=== PATIENT | female | born 1970 | race Caucasian/White ===

== ENCOUNTER → 2016-09-27 | Outpatient (CLI) | payer BC ==
--- NOTE | 2016-09-27 15:26 | REPMRS ---
Patient History The patient states she had a clinical breast exam in 2016.Patient has history of cancer in the right breast at age 35. Family history of unknown cancer in father at age 70, breast cancer in sister at age 44, ovarian cancer in mother at age 63, and breast cancer in maternal grandmother at age 65. Digital Mammo Screening Bilat: September 27, 2016 - Exam #: [id number] Bilateral CC and MLO view(s) were taken. Technologist: Lina Pelaez, Technologist Prior study comparison: May 18, 2015, bilateral digital mammo screening bilat performed at [facility]. April 22, 2014, bilateral digital mammo screening bilat performed at [facility]. August 2012, bilateral digital mammo screening bilat, performed at [facility]. FINDINGS: The breast tissue is heterogeneously dense. This may lower the sensitivity of mammography. There is a moderate amount of heterogeneously dense fibroglandular tissue which is fairly symmetric. There is a linear calcification projecting posteriorly adjacent to the chest wall on the right MLO view unchanged from multiple prior studies. There is no interval development of dominant mass, architectural distortion, or clustered microcalcification typical of malignancy. There has been no change in the appearance of the mammogram from the prior studies. ASSESSMENT: BI-RADS/ACR category 1 mammogram. Negative. Recommendation Routine screening mammogram of both breasts in 1 year (for women over age 40). This mammogram was interpreted with the aid of an FDA-approved computer-aided dectection system. Electronically Signed By: Abdon Naik MD 09/27/16 [id number]
== END ==
LOC: M RAD 15:05
PROVIDERS: ATTEND Obstetrics & Gynecology
DX: Z12.31 Encounter for screening mammogram for malignant neoplasm of breast (principal)

== ENCOUNTER 2016-11-03 10:02 | Day surgery (SDC) | payer BC ==
[2016-11-03] VITALS (12 sets, daily range): BP systolic 73–112; BP diastolic 44–78
[~2016-11-03] VITALS: Ht 160 cm; Wt 61.2 kg
[~2016-11-03 10:02] MED LIST: VARE1TA PO
[2016-11-03] MEDS ORDERED: LR 1,000 ML IV SCH ×5 (10:15→19:30)
[2016-11-03 10:28] LABS: MEAN CORPUSCULAR HEMOGLOBIN 31.5 pg (27.0-33.0); MEAN CORPUSCULAR HGB CONC 33.4 g/dl (32.0-36.5); MEAN CORPUSCULAR VOLUME 94.1 fl (80.0-96.0); RED CELL DISTRIBUTION WIDTH 12.6 % (11.5-14.5); WHITE BLOOD COUNT 7.5 K/mm3 (4.0-10.0)
[2016-11-03] MEDS ORDERED: ceFAZolin 2 GM/D5W 50 ML IV BAG (J0690) As Ordered ONE (10:38)
[2016-11-03] MEDS ORDERED: ROCURONIUM BROMIDE 50 MG/5 ML VIAL As Ordered ONE ×2 (11:24→13:10)
[2016-11-03] MEDS ORDERED: PROPOFOL 200 MG/20 ML VIAL As Ordered ONE (11:24)
[2016-11-03] MEDS ORDERED: LIDOCAINE 2% INJ 100 MG/5 ML SDV (FOR ANES.) As Ordered ONE (11:24)
[2016-11-03] MEDS ORDERED: MIDAZOLAM INJ 2 MG/2 ML VIAL (J2250) As Ordered ONE (11:24)
[2016-11-03] MEDS ORDERED: fentaNYL 250 MCG/5 ML INJECTION (J3010) As Ordered ONE (11:24)
[2016-11-03] MEDS ORDERED: dexameTHASONE 4 MG/ML 1ML VIAL (J1100) As Ordered ONE (11:24)
[2016-11-03] MEDS ORDERED: HYDROmorphone HCL 2 MG/ML 1ML VIAL (J1170) As Ordered ONE (11:40)
[2016-11-03] MEDS ORDERED: ONDANSETRON 4MG/2ML VIAL (J2405) As Ordered ONE ×2 (11:59→14:08)
[2016-11-03] MEDS ORDERED: NEOSTIGMINE 1MG/ML 5 ML SYRINGE (J2710) As Ordered ONE (11:59)
[2016-11-03] MEDS ORDERED: ESMOLOL INJ 100MG/10ML VIAL As Ordered ONE (11:59)
[2016-11-03] MEDS ORDERED: GLYCOPYRROLATE INJ 0.2 MG/ML 2 ML VIAL As Ordered ONE (11:59)
[2016-11-03] MEDS ORDERED: KETOROLAC 60 MG/2 ML VIAL (J1885) As Ordered ONE (11:59)
[2016-11-03] MEDS ORDERED: LABETALOL HCL 100 MG/20 ML VIAL As Ordered ONE (12:10)
[2016-11-03] MEDS: fentaNYL 100 MCG/2 ML INJECTION (J3010) IV PRN ×4 (14:00→14:20)
[2016-11-03] MEDS ORDERED: fentaNYL 100 MCG/2 ML INJECTION (J3010) As Ordered ONE (14:00)
[2016-11-03] MEDS ORDERED: MORPHINE PCA 1MG/ML 100ML CADD As Ordered ONE (14:00)
[2016-11-03] MEDS ORDERED: PROMETHAZINE INJ 25 MG/ML VIAL (J2550) As Ordered ONE (14:19)
[2016-11-03] MEDS ORDERED: NALBUPHINE HCL 10 MG/ML AMP (J2300) IV PRN (15:00)
[2016-11-03] MEDS ORDERED: NALOXONE INJ 0.4 MG/1 ML VIAL (J2310) IV PRN (15:00)
[2016-11-03] MEDS ORDERED: EPIDURAL/PCA KEYS XX PRN (15:00)
[2016-11-03] MEDS ORDERED: MORPHINE PCA 1MG/ML 100ML CADD IV PRN (15:00)
[2016-11-03] MEDS ORDERED: diphenhydrAMINE INJ 50MG/ML VIAL (J1200) IV PRN (15:00)
[2016-11-03] MEDS ORDERED: IBUPROFEN 600 MG TAB PO PRN (15:15)
[2016-11-03] MEDS ORDERED: PROMETHAZINE INJ 25 MG/ML VIAL (J2550) IV PRN ×2 (15:15→16:15)
[2016-11-03] MEDS ORDERED: NORCO, ANEXSIA 5/325MG TABLET (HYDROcodone/ACETAMINOPHEN) PO PRN (15:15)
[2016-11-03] MEDS ORDERED: ONDANSETRON 4MG/2ML VIAL (J2405) IV PRN (15:15)
[2016-11-03] MEDS ORDERED: METOCLOPRAMIDE INJ 10MG/2ML VIAL (J2765) As Ordered ONE (16:05)
[2016-11-03] MEDS ORDERED: METOCLOPRAMIDE INJ 10MG/2ML VIAL (J2765) IV PRN (16:15)
[2016-11-03] MEDS ORDERED: ACETAMINOPHEN TAB 650MG DOSE (2X325MG) PO PRN (19:15)
[2016-11-04] VITALS: BP 113/59
[2016-11-04] MEDS ORDERED: LIDOCAINE 2% INJ 100 MG/5 ML SDV (FOR ANES.) As Ordered ONE (00:21)
[2016-11-04] MEDS ORDERED: fentaNYL 250 MCG/5 ML INJECTION (J3010) As Ordered ONE (00:21)
[2016-11-04] MEDS ORDERED: ONDANSETRON 4MG/2ML VIAL (J2405) As Ordered ONE (00:21)
[2016-11-04] MEDS ORDERED: MIDAZOLAM INJ 2 MG/2 ML VIAL (J2250) As Ordered ONE ×2 (00:21→00:54)
[2016-11-04] MEDS ORDERED: PROPOFOL 200 MG/20 ML VIAL As Ordered ONE (00:21)
[2016-11-04] MEDS ORDERED: ROCURONIUM BROMIDE 50 MG/5 ML VIAL As Ordered ONE (00:21)
[2016-11-04] MEDS ORDERED: METOCLOPRAMIDE INJ 10MG/2ML VIAL (J2765) As Ordered ONE (01:44)
[2016-11-04] MEDS ORDERED: NEOSTIGMINE 1MG/ML 5 ML SYRINGE (J2710) As Ordered ONE (01:47)
[2016-11-04] MEDS ORDERED: GLYCOPYRROLATE INJ 0.2 MG/ML 2 ML VIAL As Ordered ONE (01:47)
[2016-11-04] MEDS ORDERED: LR 1,000 ML IV SCH ×2 (02:30→02:45)
[2016-11-04] MEDS ORDERED: ONDANSETRON 4MG/2ML VIAL (J2405) IV PRN (02:30)
[2016-11-04] MEDS ORDERED: METOCLOPRAMIDE INJ 10MG/2ML VIAL (J2765) IV PRN (02:30)
[2016-11-04] MEDS ORDERED: fentaNYL 100 MCG/2 ML INJECTION (J3010) IV PRN (02:30)
[2016-11-04 03:22] VITALS: BP 127/81
[2016-11-04 04:00] VITALS: BP 123/80
[2016-11-04 05:00] VITALS: BP_SYST 123; BP_DIAS 74; BP_DIAS 80
[2016-11-04 06:00] VITALS: BP_SYST 121; BP_SYST 123; BP_DIAS 67; BP_DIAS 74
[2016-11-04] MEDS ORDERED: NORCO, ANEXSIA 5/325MG TABLET (HYDROcodone/ACETAMINOPHEN) PO PRN (06:00)
[2016-11-04 07:00] VITALS: BP 120/82
[2016-11-04 07:00] LABS: MEAN CORPUSCULAR HEMOGLOBIN 31.3 pg (27.0-33.0); MEAN CORPUSCULAR HGB CONC 34.1 g/dl (32.0-36.5); MEAN CORPUSCULAR VOLUME 91.8 fl (80.0-96.0); RED CELL DISTRIBUTION WIDTH 14.1 % (11.5-14.5); WHITE BLOOD COUNT 12.1 K/mm3 (4.0-10.0)
[2016-11-04] MEDS ORDERED: NORCO, ANEXSIA 5/325MG TABLET (HYDROcodone/ACETAMINOPHEN) As Ordered ONE (09:07)
--- NOTE | 2016-11-04 10:37 | RO ---
DATE OF PROCEDURE: 11/03/2016 PREOPERATIVE DIAGNOSIS: Menometrorrhagia, dysmenorrhea, fibroids by films, and personal history of breast cancer. POSTOPERATIVE DIAGNOSIS: Menometrorrhagia, dysmenorrhea, fibroids by films, and personal history of breast cancer. PROCEDURE: Laparoscopic assisted vaginal hysterectomy with bilateral salpingo-oophorectomy. SURGEON: Dr. Mariya Steven STRINGER UP SOLDERING MACHINE: Yuly Deleon ANESTHESIA: General endotracheal anesthesia. BRIEF DESCRIPTION OF PROCEDURE AND FINDINGS: Mkaayla was brought to the operating room where sufficient general endotracheal anesthesia was induced and she was prepped, draped and positioned in the usual sterile fashion with an uterine manipulator placed in the retroverted uterus. The Jimenes with the ability to backfill placed. Attention was then turned to the abdomen where a transverse incision was made over a previous laparoscopic looking scar, even though patient not having been reported laparoscopy to me. Sharp and blunt dissection were continued through the subcutaneous tissues to the level of the rectus fascia where a transverse incision was made in the rectus fascia and #0 Vicryl retention sutures were placed. Given the scar that was visible once the patient was anesthetized and it was done in the belly button, we took care to dissect through the peritoneum under direct visualization, lest we run into any other adhesions, although there did not appear to be any significant difficulty in that regard. The Jimenez cannula was placed into the peritoneal cavity under direct visualization in open laparoscopic technique and the #0 Vicryl retention sutures were used to secure the Jimenez. CO2 insufflation was then begun. After adequate insufflation, the peritoneal cavity was visualized. There were normal shiny peritoneal surfaces throughout. There were no excrescences, ascites, nor exudate. Some very minor pelvic adhesions. The right tube did not really have any appearance that looked like tubal ligation, so I am not 100% sure what the previous surgery was. The left tube did have some evidence of scarring and looked like a tubal ligation, so there may have been scarring on the right side that just was not all that visible. Nonetheless, the ovaries themselves were reassuring in appearance, free swinging, and we were able with the manipulator through the operative port at the umbilical site to place the 45 mm Enseal and use that to cauterize and transect and dissect through the infundibulopelvic ligaments, carefully staying away from the ureters and the bowel. Then work our way through the mesentery of the ovary to the mesentery of the tube as well and work our way through the broad to the round ligament which was fully transected from above. Then of course did this dissection on both sides, first the left and then the right. After the ovaries were clearly free swinging and the round ligaments freed from above, attention was turned to the vaginal approach. The uterine manipulator was removed and the anterior and posterior aspect of the cervix grasped with single tooth tenacula. Circumferential incision was made around the base of the cervix. The cardinal ligaments were isolated bilaterally, clamped with the Barbara'Oconnor clamps which were used throughout this portion of the case, transected, and then ligated using #0 Vicryl, which was also used throughout this portion of the case. The posterior reflection of the peritoneum was then entered and the uterosacral ligaments were clamped, transected, ligated and secured for later reattachment to the cuff. Then dissected through the anterior tissues and the bladder flap was created and the uterine vasculature was carefully clamped, transected, and ligated in sequential fashion along the lateral aspect of the uterus. The uterus with the attached ovaries and tubes was subsequently delivered vaginally and the pedicles carefully evaluated. There definitely was some oozing on the patient's right side. We had to over sew that pedicle a couple of times, but we paused, waited, and we had the pressure down of course because we were working vaginally, and we used a sponge on a stick to dry the area and hold the bowel away, especially since the patient was in some Trendelenburg, and so we were able to see the pedicles and visualize that we had good control. The angle stitches of #0 Vicryl were placed. A whipstitch was placed also around the vaginal cuff because she had some ascending vaginal arteries that were a little more vascular than some, very likely related to the fact that she is only 45 years old. After the whipstitch of the vaginal cuff, we were able to still reevaluate the pedicles and confirm we had good hemostasis. Angle stitches of #0 Vicryl were taken and of course the uterosacrals were reincorporated and the cuff was closed with #0 Vicryl suture in a running locked stitch. A dry result was attained. With good hemostasis confirmed, attention was turned to the abdomen. The fascia wound at the umbilical site was closed with the #0 Vicryl retention sutures and the skin was closed with #3-0 Vicryl in a subcuticular stitch. A dry sterile dressing then applied. Estimated blood loss for the procedure was 100 mL. Fluid replacement was crystalloid. Complications: None. Condition and Disposition: Makayla tolerated the procedure well and was recovering in the recovery room in good condition.
[2016-11-04] MEDS ORDERED: NORC5TAB PO (12:04)
[2016-11-04] MEDS ORDERED: IBUP600T26 PO (12:06)
--- NOTE | 2016-11-04 21:15 | RO ---
DATE OF PROCEDURE: 11/03/2016 PREOPERATIVE DIAGNOSIS: Postoperative bleed with hypotension and dyspnea. POSTOPERATIVE DIAGNOSIS: Postoperative bleed with hypotension and dyspnea. Approximately 1500 mL of clots were removed from the pelvis. She did not have any areas of continued active bleeding. PROCEDURE: Laparoscopy with evacuation of blood and clot and we did cauterize the pedicles because we had a good view of them but they were not actually bleeding. SURGEON: Dr. Mariya Steven DETECTIVE CHIEF: ANESTHESIA: General endotracheal anesthesia. DESCRIPTION OF PROCEDURE: Makayla was brought to the operating room and prepped, draped and positioned in the usual sterile fashion with the Jimenes that was already in place just left in place. She did have a vaginal prep, but we did not place any type of sponge on a stick or vaginal manipulator. At this point, we turned our attention to the umbilical wound and reopened it and placed the Tone cannula under direct visualization and insufflated the belly with CO2. After adequate insufflation, the peritoneal cavity was visualized and there was copious clot and blood. There was no bright red blood. There was no initially visible source of bleeding. A 5 mm right lower quadrant port was placed so we could evacuate that and get a better evaluation. Irrigation, suction was used to irrigate, break up the clot, suck it out and, as already noted above, in the end, approximately 1500 mL of blood/clot was removed along, of course, with the irrigation. With Trendelenburg and visualization of the pelvis, we were able to see the pedicles, and although it was clear the patient had a bleed, there was certainly no question about that, and, of course, she had bled intraoperatively, not vaginally, so there was no evidence that there was external cuff bleeding causing intraabdominal blood. All of the pedicles and the cuff were carefully visualized. There was no active bleeding. Suspicion was a little bit higher on the right side just because it looked a little juicy. We let the pressure down and watched and irrigated it and suctioned it, and even with suctioning and irrigating copiously, we did not actually see any bleeding here. But because it just looked suspicious, we did re-cauterize those pedicles and then we made sure we cleared as much of that clot as we could and let the pressure down again and watched for an extended period of time to make sure that there was nothing oozing, and that included at the cuff and any to the pedicles. We then removed the patient from Trendelenburg and, again, continued evacuating as much of that blood as we could to try to minimize the risk that that would serve as a nidus for infection, and then the procedure was ended. CO2 was allowed to escape the abdomen. Trocars were removed. The fascial wound at the umbilicus was once again closed with #0 Vicryl retention sutures and the skin was closed with #3-0 Vicryl at both sites. Dry sterile dressings were then applied. Again, estimated blood loss in the range of 1500 mL but a lot of that had been lost prior to going to the operating room (OR), as already documented. Complications: None. Condition and Disposition: Makayla did tolerate the procedure well and was recovering in the recovery room in good condition.
[2016-11-05] MEDS ORDERED: NORCO, ANEXSIA 5/325MG TABLET (HYDROcodone/ACETAMINOPHEN) PO PRN (06:00)
== END 2016-11-04 12:31 | disposition home or self-care (01) ==
LOC: M SDC 10:02 → M MS5PR 15:30 → M SDC 11-04 12:31
PROVIDERS: ATTEND Obstetrics & Gynecology
DX: N88.8 Other specified noninflammatory disorders of cervix uteri (principal); N80.0 Endometriosis of uterus; N94.6 Dysmenorrhea, unspecified; N92.1 Excessive and frequent menstruation with irregular cycle; D25.9 Leiomyoma of uterus, unspecified; Z85.3 Personal history of malignant neoplasm of breast; N99.820 Postprocedural hemorrhage of a genitourinary system organ or structure following a genitourinary system procedure; I95.81 Postprocedural hypotension; R06.00 Dyspnea, unspecified; Z88.0 Allergy status to penicillin; F17.210 Nicotine dependence, cigarettes, uncomplicated; Z92.3 Personal history of irradiation
CPT/HCPCS: 36415; 36430; 49322; 58552; 85014; 85018; 85027; 86850; 86900; 86901; 86920; 88309; J0690; J1100; J1170; J1885; J2250; J2405; J2710; J2765; J3010; P9016

== ENCOUNTER → 2016-11-23 | Outpatient (REF) | payer BC ==
[~2016-11-23] MED LIST changes: +IBUP600T26 PO; +NORC1TAB4 PO
== END ==
LOC: M LAB REF 12:24
PROVIDERS: ATTEND Obstetrics & Gynecology
DX: R39.89 Other symptoms and signs involving the genitourinary system (principal)

== ENCOUNTER → 2016-12-08 | Outpatient (REF) | payer BC | LOC: M LAB REF 14:02 | PROVIDERS: ATTEND Physician Assistant | DX: R30.0 Dysuria (principal) ==

== ENCOUNTER → 2017-04-27 | Outpatient (REF) | payer BC ==
[~2017-04-27] MED LIST changes: +IBUP-1022 PO; -IBUP600T26 PO
[2017-04-30 00:06] LABS: Lyme Disease IgG/IgM Antibodie <0.91 ISR (0.00-0.90); Lyme Disease IgM Ab Quantitati <0.80 index (0.00-0.79)
== END ==
LOC: M LAB REF 14:55
PROVIDERS: ATTEND Nurse Practitioner Adult Health
DX: M13.0 Polyarthritis, unspecified (principal)

== ENCOUNTER → 2017-05-19 | Outpatient (CLI) | payer BC ==
--- NOTE | 2017-05-19 16:07 | REP ---
DIAGNOSTIC MAMMOGRAM RIGHT BREAST WITH RIGHT BREAST ULTRASOUND: Diagnostic mammogram right breast performed with multiple spot compression views obtained. Reportedly there is a palpable abnormality in the region of the right axillary tail, which is marked on the skin with a triangular marker. Comparison made with multiple prior exams, most recently 09/27/2016. Moderate fibroglandular tissue is unchanged with no new mass or architectural distortion. No clustered microcalcifications are seen. Real-time sonographic evaluation of the right breast was performed in the region of 10-o'clock at the site of the reported palpable abnormality. No cystic or solid nodule is seen at that location. Incidental note is made of dilated ducts in the 9-o'clock region of the right breast near the nipple. In this 9-o'clock region, there is also an oval hypoechoic nodule which demonstrates internal blood flow measuring 7 x 4 x 11 mm. There is low resistance flow with duplex Doppler evaluation. I would recommend ultrasound guided biopsy of the hypoechoic nodule at 9-o'clock. IMPRESSION: ACR 4 suspicious. No mammographic or sonographic abnormality is seen at the site of the reported palpable abnormality. However, at 9-o'clock position is an oval hypoechoic nodule demonstrating internal blood flow measuring 7 x 4 x 11 mm. Recommend ultrasound guided biopsy. BI-RADS/ACR category 4 mammogram. Suspicious abnormality - biopsy should be considered. Usually requires biopsy. This mammogram was interpreted with the aid of an FDA-approved computer-aided detection system. The patient states she/he had a clinical breast exam in April 2017. The patient letter being requested is M4. Signed by Dinesh Haro MD 05/19/2017 07:23 P
== END ==
LOC: M RAD 14:26
PROVIDERS: ATTEND Nurse Practitioner Adult Health
DX: N63 Unspecified lump in breast (principal); Z85.3 Personal history of malignant neoplasm of breast
CPT/HCPCS: 76642; G0206

== ENCOUNTER → 2017-10-10 | Outpatient (CLI) | payer BC | LOC: M WHC 07:57 | DX: N95.1 Menopausal and female climacteric states (principal); C50.919 Malignant neoplasm of unspecified site of unspecified female breast (principal) | CPT/HCPCS: 77080 ==

== ENCOUNTER → 2018-12-07 | Outpatient (CLI) | payer MEDICAID ==
[~2018-12-07] MED LIST changes: +GASTROGRAFIN SOLUTION 30ML (Q9963) As Ordered ONE; +ISOVUE-370 76% 100ML VIAL (Q9967) As Ordered ONE; +LEFL1TAB4 PO; +LETR2.5T2 PO; -NORC1TAB4 PO; +NORC1TAB7 PO; +PRED10TA2 PO; +VENL150C43 PO
--- NOTE | 2018-12-07 15:59 | REP ---
CT of the chest with IV contrast: There are no comparison chest CT studies. Studies performed for right breast DCIS. There is a noncalcified the right middle lobe 11 mm spiculated lung nodule on image 73. There are no other lung nodules or masses. There are no infiltrates or effusions. There are bilateral breast implants. There is pectus excavatum. The thoracic aorta is unremarkable. Cardiac size is normal. There is no pericardial effusion. There are no lytic, blastic or destructive skeletal changes. Impression: 11 mm spiculated right middle lobe lung nodule. I would recommend follow-up radionuclide PET scan for further evaluation. Pectus excavatum. Electronically Signed by Dinesh Coburn MD 12/07/2018 03:50 P
--- NOTE | 2018-12-07 16:07 | REP ---
CT of the abdomen and pelvis with IV and oral contrast: There is a spiculated 11 ml lung nodule in the right middle lobe, for which follow-up PET scan is recommended. Please refer to the chest CT for further information. The hepatic parenchyma demonstrates a 7 ml hypodense lesion posteriorly in the right lobe of the liver, too small to further characterize that this time. The hepatic parenchyma is otherwise homogeneous and unremarkable. The gallbladder, pancreas, spleen, adrenals, and kidneys are unremarkable except for a tiny 2 mm nonobstructive left renal calculus. The abdominal aorta is unremarkable. There is no retroperitoneal adenopathy or mass. There is no mesenteric adenopathy, mass or ascites. There is no bowel distension or obstruction. There is nonspecific wall thickening of the sigmoid colon. This could represent colitis in the appropriate clinical setting. Pelvis: There is a hysterectomy. Vaginal cuff and adnexa are unremarkable. There is no ascites or adenopathy. The bladder is unremarkable. Wall thickening of the sigmoid colon compatible with colitis in the appropriate clinical setting. There are no lytic, blastic or destructive skeletal changes. Impression: There are findings compatible with sigmoid colon colitis in the appropriate clinical setting. Otherwise, no evidence of adenopathy, mass or metastatic disease. Electronically Signed by Dinesh Coburn MD 12/07/2018 03:58 P
== END ==
LOC: M RAD 13:25
PROVIDERS: ATTEND Nurse Practitioner Family
DX: C50.911 Malignant neoplasm of unspecified site of right female breast (principal); R91.1 Solitary pulmonary nodule
CPT/HCPCS: 71260; 74177; Q9963; Q9967

== ENCOUNTER → 2019-07-01 | Outpatient (CLI) | payer BC ==
[~2019-07-01] MED LIST changes: +CLON0.3D8 TOP; -GASTROGRAFIN SOLUTION 30ML (Q9963) As Ordered ONE
--- NOTE | 2019-07-02 05:09 | REP ---
Clinical: Follow-up pulmonary nodule. Technique: Axial contrast enhanced images from the thoracic inlet to the upper abdomen with coronal and sagittal re-formations using 100 ml Isovue 370 intravenous contrast material. Comparison: Chest CT 12/07/2018. PET-CT 01/15/2019. Findings: The 11 mm spiculated lung nodule in the right middle lobe remains stable and appeared non-hypermetabolic on recent PET CT. Small area of nodular scarring medial to the nodule also remains stable and non-hypermetabolic. A smaller 3 mm nodule in the right lower lobe remains unchanged and again non-hypermetabolic. Lung [place] are otherwise well aerated and without further acute consolidation, nodule or mass lesion. No effusion. No pneumothorax. Tracheobronchial tree is patent. No adenopathy. The mediastinum demonstrates normal thoracic aorta, pulmonary vasculature, and heart/pericardium. Surrounding musculoskeletal structures are intact and without focal abnormality. Bilateral mammoplasty. Impression: 1. Lung nodules remains stable and are noted to be non-hypermetabolic on recent PET CT. Consider 9-12 month follow-up to confirm stability. 2. No new acute mediastinal or pleuroparenchymal process. Electronically Signed by Tony Cristobal MD 07/02/2019 05:00 A
== END ==
LOC: M RAD 11:07
PROVIDERS: ATTEND Nurse Practitioner Family
DX: R91.8 Other nonspecific abnormal finding of lung field (principal); C50.911 Malignant neoplasm of unspecified site of right female breast; Z87.891 Personal history of nicotine dependence

== ENCOUNTER → 2019-10-11 | Outpatient (CLI) | payer BC, OTHER ==
[~2019-10-11] MED LIST changes: -ISOVUE-370 76% 100ML VIAL (Q9967) As Ordered ONE
--- NOTE | 2019-10-15 13:22 | DEXA ---
AP SPINE L1 - L4 1.042 -1.2 -1.1 LT FEMUR TOTAL 0.871 -1.1 -0.7 LT NECK 0.864 -1.3 -0.6 RT FEMUR TOTAL 0.901 -0.8 -0.5 RT NECK 0.872 -1.2 -1.5 TOTAL BODY TOTAL OTHER COMMENTS: There is low bone density of the spine and hips. The density of the spine is increased 4.3% since 10/10/2017. The density of the left hip has increased 1.5% since 10/10/2017. The density of the right hip has increased 4.6% since 10/10/2017. FOLLOW-UP: Recommendation for the next bone density exam: 2 years. KAEL
== END ==
LOC: M WHC 12:52
PROVIDERS: ATTEND Internal Medicine Medical Oncology
DX: M81.0 Age-related osteoporosis without current pathological fracture (principal); C34.90 Malignant neoplasm of unspecified part of unspecified bronchus or lung

== ENCOUNTER → 2020-07-20 | Outpatient (CLI) | payer BC ==
[~2020-07-20] MED LIST changes: +ISOVUE-370 76% 100ML VIAL As Ordered ONE; +PROZ10CA7 PO
--- NOTE | 2020-07-20 10:00 | REP ---
INDICATION: LUNG NODULES COMPARISON: 07/01/2019 TECHNIQUE: Axial contrast enhanced images from the thoracic inlet to the upper abdomen with coronal and sagittal reformations using 75 ml Isovue 370 intravenous contrast material[address] examination was performed using the following dose reduction techniques: Automated exposure control, adjustment of mA and/or kv according to the patient's size, and use of iterative reconstruction technique. FINDINGS: The 11 mm rounded lesion in the right middle lobe along with medial right middle lobe scarring and 3 mm noncalcified nodule in the deep lateral right sulcus (image 82) remains stable. A 3 mm subpleural nodule in the apical right lower lobe (image 41) and subpleural 2-3 mm densities in the posterior left lower lobe also identified and in retrospect remain stable as well. No acute consolidation, significant nodule or mass lesion. No pleural effusion. No pneumothorax. Mediastinum demonstrates normal stable appearance to the thoracic aorta, pulmonary vasculature, and heart/pericardium. Thyroid gland demonstrates stable low-density cystic/nodular changes. Evidence for prior bilateral mastectomy/mammoplasty. Musculoskeletal structures without acute osseous abnormality. Limited upper abdomen demonstrates normal bilateral adrenal glands and stable subcentimeter right hepatic cyst. IMPRESSION: 1. Stable pulmonary lesions unchanged compared through 12/07/2018 and non metabolic on PET-CT dated 01/15/2019 likely representing chronic stable changes. 2. No acute mediastinal or pleuroparenchymal process appreciated. 3. Cystic/nodular changes to the thyroid gland. <Electronically signed by Tony Cristobal > 07/20/20 0930
== END ==
LOC: M RAD 08:34
PROVIDERS: ATTEND Internal Medicine Hematology & Oncology
DX: R91.1 Solitary pulmonary nodule (principal); Z85.3 Personal history of malignant neoplasm of breast; Z90.13 Acquired absence of bilateral breasts and nipples
CPT/HCPCS: 71260; Q9967

== ENCOUNTER → 2020-08-27 | Outpatient (REF) | payer BC ==
[~2020-08-27] MED LIST changes: -ISOVUE-370 76% 100ML VIAL As Ordered ONE
[2020-08-27 12:55] LABS: H PYLORI QUALITATIVE IgG NEGATIVE (NEGATIVE)
== END ==
LOC: M LAB REF 12:14
PROVIDERS: ATTEND Nurse Practitioner Adult Health
DX: R11.0 Nausea (principal); Z51.81 Encounter for therapeutic drug level monitoring

== ENCOUNTER → 2021-09-29 | Outpatient (REF) | payer BC | LOC: M LAB REF 11:45 | PROVIDERS: ATTEND Nurse Practitioner Adult Health | DX: Z02.1 Encounter for pre-employment examination (principal) ==

== ENCOUNTER → 2021-10-08 | Outpatient (CLI) | payer BC | LOC: M PLAIMG 10:21 | PROVIDERS: ATTEND Nurse Practitioner Adult Health | DX: N20.0 Calculus of kidney (principal); R91.1 Solitary pulmonary nodule; K76.89 Other specified diseases of liver ==

== ENCOUNTER → 2023-02-06 | Day surgery (SDC) | payer BC ==
[~2023-02-06] VITALS: Ht 160 cm; Wt 60.6 kg
[~2023-02-06] MED LIST changes: +HYDR200T46 PO; +LIDOCAINE 2% 100MG/5ML SDV (FOR ANES.) As Ordered ONE; +NS 1,000 ML IV ONE; +SULF500T2 PO; +fentaNYL 100 MCG/2 ML INJECTION As Ordered ONE; +propofoL 200 MG/20 ML VIAL As Ordered ONE
[2023-02-06 15:00] VITALS: BP 120/87; TEMP 96.6; O2SAT 96
== END | disposition home or self-care (01) ==
LOC: M OPP 10:56
PROVIDERS: ATTEND Internal Medicine Gastroenterology
DX: D49.0 Neoplasm of unspecified behavior of digestive system (principal); D12.2 Benign neoplasm of ascending colon; D12.4 Benign neoplasm of descending colon; K57.30 Diverticulosis of large intestine without perforation or abscess without bleeding; K64.8 Other hemorrhoids; Z15.09 Genetic susceptibility to other malignant neoplasm; K44.9 Diaphragmatic hernia without obstruction or gangrene; K29.70 Gastritis, unspecified, without bleeding; R12 Heartburn
CPT/HCPCS: 43239; 45385; 88305; J3010

== ENCOUNTER → 2023-03-07 | Outpatient (CLI) | payer BC ==
[~2023-03-07] MED LIST changes: +GASTROGRAFIN SOLUTION 30ML As Ordered ONE; +ISOVUE-300 61% 100ML VIAL As Ordered ONE; -LIDOCAINE 2% 100MG/5ML SDV (FOR ANES.) As Ordered ONE; -NS 1,000 ML IV ONE; -fentaNYL 100 MCG/2 ML INJECTION As Ordered ONE; -propofoL 200 MG/20 ML VIAL As Ordered ONE
== END ==
LOC: M RAD 08:02
PROVIDERS: ATTEND Nurse Practitioner Family
DX: D12.6 Benign neoplasm of colon, unspecified (principal); Z15.09 Genetic susceptibility to other malignant neoplasm
CPT/HCPCS: 71260; 74177; Q9963; Q9967